=== PATIENT | female | born 1950 | race Caucasian/White ===

== ENCOUNTER 2017-09-11 05:32 | Day surgery (SDC) | payer OTHER ==
[~2017-09-11] VITALS: Ht 165.1 cm; Wt 102.9 kg
[~2017-09-11 05:32] MED LIST: ACCUPRIL40 MG PO; CYMBALTA60 MG PO; IRON159 MG PO; LEVO-T175 MCG PO; LYRICA150 MG PO; MEVACOR20 MG PO; NORVASC5 MG PO; SINGULAIR10 MG PO; TOPROL XL100 MG PO; VITAMIN B-121000 MC3 PO; ZANAFLEX4 MG PO; ZYRTEC10 M3 PO
[2017-09-11] MEDS ORDERED: METFORMIN HCL1000 MG PO (06:00)
[2017-09-11] MEDS ORDERED: GLIPIZIDE10 MG PO (06:01)
[2017-09-11 06:12] VITALS: BP 160/70
[2017-09-11 09:20] VITALS: BP 153/67
[2017-09-11 10:00] VITALS: BP 146/67
== END 2017-09-11 10:10 | disposition home or self-care (01) ==
LOC: SDC 05:32
PROVIDERS: Obstetrics & Gynecology Gynecologic Oncology
PROC: 8E0UXY7 Examination of Female Reproductive System (ICD-10-PCS; principal; 2017-09-11)
DX: N90.4 Leukoplakia of vulva (principal); R87.810 Cervical high risk human papillomavirus (HPV) DNA test positive; Z53.09 Procedure and treatment not carried out because of other contraindication; N89.5 Stricture and atresia of vagina; Z87.410 Personal history of cervical dysplasia; E66.01 Morbid (severe) obesity due to excess calories; Z68.38 Body mass index [BMI] 38.0-38.9, adult; I10 Essential (primary) hypertension; J45.909 Unspecified asthma, uncomplicated; E03.9 Hypothyroidism, unspecified; E11.9 Type 2 diabetes mellitus without complications; K21.9 Gastro-esophageal reflux disease without esophagitis; E78.5 Hyperlipidemia, unspecified
CPT/HCPCS: 82948; J0330; J0690; J1100; J2405; J3010